=== PATIENT | female | born 1970 | race Caucasian/White ===

== ENCOUNTER 2018-07-07 00:27 | Emergency (ER) | payer MEDICAID ==
[2018-07-07] MEDS ORDERED: HYDROMORPHONE HCL 2 MG/ML VIAL IVP ONE ×2 (01:09→03:01)
[2018-07-07] MEDS ORDERED: ONDANSETRON HCL IV 4 MG/2 ML VIAL IVP ONE (01:10)
--- NOTE | 2018-07-07 01:13 | Emergency Department Record ---
History of Present Illness - General Chief complaint: Abscess Stated complaint: ABCESS Time Seen by Provider: 07/07/18 00:32 Source: Patient Mode of Arrival: Ambulatory Limitations: No limitations - History of Present Illness Initial comments: pt c/o abscess on her breast. she had an abscess in a different spot several years ago. this started a few days ago and is getting progressively worse. she has been running a fever. ir is very tender. she has not had a mammogram. her other breast has been checked for malignancy several times, she is currently being w/u for leukemia as it runs in the family. pt also states she has had discharge from the nipple MD complaint: Abscess/boil Onset/Timin -: Hour(s) Hx Tetanus Toxoid Vaccination: No Patient Tetanus UTD (within 5 yrs): No Location: Chest Severity: Moderate Severity scale (1-10): 10 Consistency: Constant Improves with: None Worsens with: Palpation Context: None Associated symptoms: Fever Treatments Prior to Arrival: Attempted to drain pus at home - Related Data Previous Rx's Medication Instructions Recorded Clindamycin HCl [Cleocin HCl] 150 mg PO Q8H #30 cap 07/07/18 Clindamycin HCl [Cleocin HCl] 300 mg PO Q8HR #30 capsule 07/07/18 Hydrocodone/Acetaminophen [[place] 1 each PO Q6HR #10 tablet 07/07/18 5-325 Tablet] Allergies Allergy/AdvReac Type Severity Reaction Status Date / Time ketorolac Allergy Intermediate HIVES Verified 05/08/16 01:34 Iodinated Contrast- Oral and Allergy HIVES Verified 05/08/16 01:34 IV Dye Travel Screening - Travel/Exposure Within Last 30 Days Have you traveled within the last 30 days?: No - Travel Symptoms Symptom Screening: Fever (Subjective) Review of Systems Reviewed: No additional complaints except as noted below Constitutional: Reports: As per HPI. Denies: Chills, Fever, Malaise, Night sweats, Weakness, Weight change Eyes: Reports: As per HPI. Denies: Eye discharge, Eye pain, Photophobia, Vision change ENT: Reports: As per HPI. Denies: Congestion, Dental pain, Ear pain, Epistaxis , Hearing loss, Throat pain Respiratory: Reports: As per HPI. Denies: Cough, Dyspnea, Hemoptysis, Stridor, Wheezes Cardiovascular: Reports: As per HPI. Denies: Arrhythmia, Chest pain, Dyspnea on exertion, Edema, Murmurs, Orthopnea, Palpitations, Paroxysmal nocturnal dyspnea, Rheumatic Fever, Syncope Endocrine: Reports: As per HPI. Denies: Fatigue, Heat or cold intolerance, Polydipsia, Polyuria Gastrointestinal: Reports: As per HPI. Denies: Abdominal pain, Constipation, Diarrhea, Hematemesis, Hematochezia, Melena, Nausea, Vomiting Genitourinary: Reports: As per HPI. Denies: Abnormal menses, Discharge, Dyspareunia, Dysuria, Frequency, Hematuria, Incontinence, Retention, Urgency Musculoskeletal: Reports: As per HPI. Denies: Arthralgia, Back pain, Gout, Joint swelling, Myalgia, Neck pain Skin: Reports: As per HPI, Rash. Denies: Bruising, Change in color, Change in hair/nails, Lesions, Pruritus Neurological: Reports: As per HPI. Denies: Abnormal gait, Confusion, Headache, Numbness, Paresthesias, Seizure, Tingling, Tremors, Vertigo, Weakness Psychiatric: Reports: As per HPI. Denies: Anxiety, Auditory hallucinations, Depression, Homicidal thoughts, Suicidal thoughts, Visual hallucinations Hematological/Lymphatic: Reports: As per HPI. Denies: Anemia, Blood Clots, Easy bleeding, Easy bruising, Swollen glands Past Medical History - SOCIAL HISTORY Smoking Status: Never smoker Alcohol Use: None Drug Use: None - RESPIRATORY Hx Respiratory Disorders: Yes Hx Asthma: Yes - CARDIOVASCULAR Hx Cardio Disorders: No - NEURO Hx Neuro Disorders: No - GI Hx GI Disorders: Yes Hx GI Bleed: Yes - Hx Genitourinary Disorders: Yes Comment:: Interstitial cystitis - ENDOCRINE Hx Endocrine Disorders: No - MUSCULOSKELETAL Hx Musculoskeletal Disorders: No - PSYCH Hx Psych Problems: Yes Hx Anxiety: Yes Hx Depression: Yes - HEMATOLOGY/ONCOLOGY Hx Hematology/Oncology Disorders: Yes Hx Cancer: Yes (Endometrial) Family Medical History Any Significant Family History?: Yes Hx Cancer: Grandparents Hx HTN: Father, Mother, Grandparents Physical Exam - General General Appearance: Alert, Oriented x3, Cooperative, Mild distress - Head Head exam: Normal inspection - Eye Eye exam: Normal appearance, PERRL, EOMI Pupils: Normal accommodation - ENT ENT exam: Normal exam, Mucous membranes moist, Normal external ear exam, Normal orophraynx Ear exam: Normal external inspection. negative: External canal tenderness Nasal Exam: Normal inspection. negative: Discharge, Sinus tenderness Mouth exam: Normal external inspection, Tongue normal Teeth exam: Normal inspection. negative: Dental caries Throat exam: Normal inspection. negative: Tonsillar erythema, Tonsillar exudate - Neck Neck exam: Normal inspection, Full ROM. negative: Tenderness - Respiratory Respiratory exam: Normal lung sounds bilaterally, Chest wall tenderness. negative: Respiratory distress - Cardiovascular Cardiovascular Exam: Normal rhythm, Normal heart sounds, Tachycardia - GI/Abdominal GI/Abdominal exam: Soft, Normal bowel sounds. negative: Tenderness - Rectal Rectal exam: Deferred - exam: Deferred - Extremities Extremities exam: Normal inspection, Full ROM, Normal capillary refill. negative: Tenderness - Back Back exam: Reports: Normal inspection, Full ROM. Denies: Muscle spasm, Rash noted, Tenderness - Neurological Neurological exam: Alert, CN II-XII intact, Normal gait, Oriented X3 - Psychiatric Psychiatric exam: Normal affect, Normal mood - Skin Skin exam: Dry, Erythema (lower part of left breast), Intact, Normal color, Warm Type of lesion: Abscess Distribution of rash: Chest Course Vital Signs 07/07/18 00:33 Temperature 98.1 F Pulse Rate [ 110 H Pulse Ox Probe] Respiratory 18 Rate Blood Pressure 175/93 [Left Arm] Pulse Ox 91 L Medical Decision Making - Lab Data Result diagrams: 07/07/18 01:15 07/07/18 01:15 Disposition Disposition: Discharge Clinical Impression: Breast infection in female Disposition: Home, Self-Care Condition: (1) Good Instructions: Abscess (ED) Additional Instructions: follow up with family doctor this week. use warm compresses. have mammogram. Prescriptions: Hydrocodone/Acetaminophen [[place] 5-325 Tablet] 1 each PO Q6HR #10 tablet Clindamycin HCl [Cleocin HCl] 300 mg PO Q8HR #30 capsule Clindamycin HCl [Cleocin HCl] 150 mg PO Q8H #30 cap Forms: Patient Portal Access Quality - Quality Measures Quality Measures: N/A - Blood Pressure Screening Does Patient Have Any of the Following: Active Dx of HTN Blood Pressure Classification: Hypertensive Reading Systolic Measurement: 175 Diastolic Measurement: 93 Screening for High Blood Pressure: Patient Exclusion, Hx of HTN [G9744]
[2018-07-07] MEDS ORDERED: CLINDAMYCIN 600MG/50ML PREMIX 600 MG/50 ML BAG IVPB ONE (01:22)
[2018-07-07 01:27] LABS: BASO % 0.6 % (0-6); EOS % 2.5 % (0-6); GRAN % 55.7 % (47-80); HEMATOCRIT 42.4 % (35.0-47.0); HEMOGLOBIN 13.2 gm/dl (11.6-16.0); LYMPH % 29.5 % (16-45); MEAN CELL VOLUME 88.5 fl (81-97); MEAN CORPUSCULAR HEMOGLOBIN 27.6 pg (27-33); MEAN CORPUSCULAR HGB CONC 31.1 g/dl (32-36); MEAN PLATELET VOLUME 9.6 fl (7.4-10.4); MONO % 11.7 % (0-9); PLATELET COUNT 319 K/uL (130-400); RED BLOOD COUNT 4.79 M/uL (3.80-5.40); WHITE BLOOD COUNT W/O DIFF 13.4 K/uL (4.2-12.2)
[2018-07-07 01:36] LABS: BLOOD UREA NITROGEN 18 mg/dL (6-20); EST GLOMERULAR FILTRATION RATE > 60 mL/min; TOTAL PROTEIN 7.7 g/dL (6.6-8.7)
[2018-07-07 01:38] LABS: GLUCOSE,RANDOM 93 mg/dL (74-109)
[2018-07-07 01:41] LABS: ALB/GLOB RATIO 1.1 (1.1-1.8); ALKALINE PHOSPHATASE 104 U/L (35-104); ALT/SGPT 23 U/L (<33); AST/SGOT 19 U/L (10.0-35.0)
[2018-07-07] MEDS ORDERED: FLUCONAZOLE 100 MG TABLET PO ONE (03:19)
--- NOTE | 2018-07-09 10:37 | CT SCAN REPORT ---
EXAM: CT OF THE CHEST WITHOUT CONTRAST HISTORY: ENLARGING LEFT BREAST MASS. TECHNIQUE: Routine noncontrast CT examination of the chest was obtained. Comparison: Two view chest radiographic examination dated 03/25/18. FINDINGS: The heart is normal in size. The thoracic aorta is normal in caliber as are the arch branch vessels. No mediastinal or hilar mass/ lymphadenopathy is seen. The central airways are clear. Minimal linear scarring versus atelectasis within the anterior lung bases. The lungs are otherwise clear. No pleural or pericardial effusion. There is skin thickening involving the inferior aspect of the left breast with somewhat nodular prominence measuring 15 x 24 mm. This may all be inflammatory though developing abscess would be difficult to entirely exclude. There is possible scar involving the superior right breast. The adrenal glands are incompletely imaged. To the extent visualized, they are normal in appearance. No lytic or blastic bone lesion is seen. IMPRESSION: 1. NO CT EVIDENCE OF AN ACUTE INTRATHORACIC PROCESS NOR INTRATHORACIC MASS. MINIMAL LINEAR SCARRING VERSUS ATELECTASIS IN THE ANTERIOR LUNG BASES. 2. SKIN THICKENING INVOLVING THE INFERIOR ASPECT OF THE LEFT BREAST WITH FOCAL CENTRAL NODULARITY. THIS MAY ALL RELATE TO CELLULITIS THOUGH DEVELOPING ABSCESS WOULD BE DIFFICULT TO ENTIRELY EXCLUDE. JOB NUMBER: [id number] [facility]
== END 2018-07-07 03:27 | disposition home or self-care (01) ==
LOC: ER 00:27
DX: N61.1 Abscess of the breast and nipple (principal)
CPT/HCPCS: 99284 ×2; 96376; 96365; 96375; 85025; 80053; 71250; J2405; J1170

== ENCOUNTER 2018-09-05 16:22 | Emergency (ER) | payer MEDICAID ==
--- NOTE | 2018-09-05 16:49 | Emergency Department Record ---
History of Present Illness - General Chief Complaint: Back Pain/Injury Stated Complaint: PEVIC AND BACK PAIN Time Seen by Provider: 09/05/18 16:35 Source: Patient Mode of Arrival: Ambulatory Limitations: No limitations - History of Present Illness Initial Comments: The patient is here due to pelvic burning and dysuria for one day with R flank pain. She has had no nausea, vomiting, fever, chills, or L sided AP. The patient does have a hx of kidney stones but this does not feel exactly like one. The patient did take her home Clio and Motrin prior to coming here. The patient has had a GIOVANNY in the past. The patient also has had a thin vaginal discharge and has had the burning feeling in the past with Bacterial vaginosis. MD Complaint: Other Onset/Timin -: Days(s) Severity scale (1-10): 8 - Related Data Previous Rx's Medication Instructions Recorded Metronidazole [Flagyl] 500 mg PO BID #14 tablet 09/05/18 Allergies Allergy/AdvReac Type Severity Reaction Status Date / Time ketorolac Allergy Intermediate HIVES Verified 09/05/18 16:34 Iodinated Contrast- Oral and Allergy HIVES Verified 09/05/18 16:34 IV Dye Travel Screening - Travel/Exposure Within Last 30 Days Have you traveled within the last 30 days?: No - Travel/Exposure Within Last Year Have you traveled outside the [place] in the last year?: No - Additonal Travel Details Have you been exposed to anyone with a communicable illness?: No - Travel Symptoms Symptom Screening: None Review of Systems Constitutional: Denies: Chills, Fever Eyes: Denies: Eye discharge ENT: Denies: Congestion Respiratory: Denies: Cough, Dyspnea Past Medical History - SOCIAL HISTORY Smoking Status: Never smoker Alcohol Use: None Drug Use: None - RESPIRATORY Hx Respiratory Disorders: Yes Hx Asthma: Yes - CARDIOVASCULAR Hx Cardio Disorders: Yes Hx Palpitations: Yes - NEURO Hx Neuro Disorders: No - GI Hx GI Disorders: Yes Hx Diverticulitis: Yes Hx GI Bleed: Yes Hx of Polyps: Yes - Hx Genitourinary Disorders: Yes Hx Kidney Stones: Yes Hx UTI: Yes Comment:: Interstitial cystitis - ENDOCRINE Hx Endocrine Disorders: No - MUSCULOSKELETAL Hx Musculoskeletal Disorders: No - PSYCH Hx Psych Problems: Yes Hx Anxiety: Yes Hx Depression: Yes - HEMATOLOGY/ONCOLOGY Hx Hematology/Oncology Disorders: Yes Hx Cancer: Yes (Endometrial) Family Medical History Any Significant Family History?: No Hx Cancer: Grandparents Hx HTN: Father, Mother, Grandparents Physical Exam - General General Appearance: Alert, Oriented x3, Cooperative, No acute distress - Head Head exam: Atraumatic, Normocephalic, Normal inspection - Eye Eye exam: Normal appearance, PERRL - Neck Neck exam: Normal inspection, Full ROM. negative: Tenderness - Respiratory Respiratory exam: Normal lung sounds bilaterally. negative: Respiratory distress - Cardiovascular Cardiovascular Exam: Regular rate, Normal rhythm, Normal heart sounds - GI/Abdominal GI/Abdominal exam: Soft (morbidly obese.), Tenderness (There is mild diffuse lower abdominal tenderness with no guarding or rebound.). negative: Rebound, Rigid - exam: Normal external exam, Vaginal discharge (thin and clear.), Other ( Placing the speculum exactly reproduces the patient's pain and pelvic burning feeling.). negative: Abnormal external exam (There is no erythema or external pelvic lesions visualized.), Normal speculum exam, Vaginal bleeding, Vaginal erythema (There were no vaginal lesions. ) - Extremities Extremities exam: Normal inspection, Full ROM, Normal capillary refill. negative: Tenderness - Neurological Neurological exam: Alert. negative: Motor sensory deficit Course Vital Signs 09/05/18 16:25 Temperature 98.9 F Pulse Rate 119 H Respiratory 18 Rate Blood Pressure 138/87 Pulse Ox 95 - Reevaluation(s) Reevaluation #1: The patient is resting comfortably and appears to be in no distress. I did discuss the issues with the pelvic exam and that the vaginal area clearly seems to be the issue. We will treat the a patient for BV and also have her F/U with her Urologist for her recheck of her IC. 09/05/18 18:13 Medical Decision Making - Data Complexity MDM Data: Labs Ordered and/or Reviewed, X-Ray Ordered and/or Reviewed - Lab Data Result diagrams: 09/05/18 16:50 09/05/18 16:50 - Radiology Data Radiology results: Report reviewed (CT: Neg for any acute changes.) Disposition Disposition: Discharge Clinical Impression: Pelvic pain Disposition: Home, Self-Care Condition: (2) Stable Instructions: Pelvic Pain in Women (ED) Additional Instructions: Please continue your home pain medicines and take the Flagyl as directed. Please see your family doctor for recheck next week and also see Dr. Mckenna for recheck. Return to the ER for any worsening symptoms. Prescriptions: Metronidazole [Flagyl] 500 mg PO BID #14 tablet Forms: Patient Portal Access Time of Disposition: 18:15 Quality - Quality Measures Quality Measures: N/A - Blood Pressure Screening View Details: Yes Does Patient Have Any of the Following: No Blood Pressure Classification: Normal BP Reading Systolic Measurement: 116 Diastolic Measurement: 76 Screening for High Blood Pressure: < Normal BP, F/U Not Required > [G8783]
[2018-09-05 16:58] LABS: BASO % 0.6 % (0-6); EOS % 2.3 % (0-6); GRAN % 54.2 % (47-80); HEMATOCRIT 47.3 % (35.0-47.0); HEMOGLOBIN 14.8 gm/dl (11.6-16.0); LYMPH % 31.7 % (16-45); MEAN CELL VOLUME 86.6 fl (81-97); MEAN CORPUSCULAR HEMOGLOBIN 27.1 pg (27-33); MEAN CORPUSCULAR HGB CONC 31.3 g/dl (32-36); MONO % 11.2 % (0-9); PLATELET COUNT 364 K/uL (130-400); RED BLOOD COUNT 5.46 M/uL (3.80-5.40); RED CELL DISTRIBUTION WIDTH 15.7 % (11.5-14.5); WHITE BLOOD COUNT W/O DIFF 11.9 K/uL (4.2-12.2)
[2018-09-05 17:00] LABS: URINE APPEARANCE CLEAR; URINE BILIRUBIN NEGATIVE (NEGATIVE); URINE BLOOD NEGATIVE (NEGATIVE); URINE COLOR YELLOW; URINE GLUCOSE (UA) NEGATIVE (NEGATIVE); URINE KETONE NEGATIVE (NEGATIVE); URINE LEUKOCYTE ESTERASE NEGATIVE (NEGATIVE); URINE NITRITE NEGATIVE (NEGATIVE); URINE PROTEIN NEGATIVE (NEGATIVE); URINE UROBILINOGEN 0.2 E.U./dL (0.20 - 1.00)
[2018-09-05 17:09] LABS: BILIRUBIN,TOTAL 0.3 mg/dL (0.2-1.0); CREATININE 1.1 mg/dL (0.5-0.9)
[2018-09-05 17:10] LABS: TOTAL PROTEIN 8.2 g/dL (6.6-8.7)
[2018-09-05 17:15] LABS: ALB/GLOB RATIO 1.1 (1.1-1.8); ALBUMIN 4.2 g/dL (4.0-5.0)
--- NOTE | 2018-09-07 10:12 | CT SCAN REPORT ---
EXAM: CT OF THE ABDOMEN AND PELVIS WITHOUT CONTRAST HISTORY: LOWER ABDOMINAL PAIN. TECHNIQUE: Sequential axial images were obtained from the diaphragms through the ischiorectal fossa without intravenous or oral contrast administration. FINDINGS: The visualized lung bases appear normal. The gallbladder has been surgically removed. The nonopacified liver, pancreas and spleen appear normal. The adrenal glands and kidneys appear normal. The small bowel appears normal. The colon appears normal. No evidence of diverticulitis. The urinary bladder appears grossly unremarkable. Stimulator device in the lower lumbar spine. Degenerative change of the lower lumbar spine. IMPRESSION: NO ACUTE ABDOMINAL OR PELVIC DISEASE PROCESS. JOB NUMBER: [id number] [facility]
== END 2018-09-05 18:30 | disposition home or self-care (01) ==
LOC: ER 16:22
DX: R10.2 Pelvic and perineal pain (principal); R30.0 Dysuria; Z87.442 Personal history of urinary calculi
CPT/HCPCS: 99284 ×2; 85025; 80053; 81003; 74176; Q0111; 87210

== ENCOUNTER 2019-08-17 21:30 | Emergency (ER) | payer MEDICAID ==
--- NOTE | 2019-08-17 21:41 | Emergency Department Record ---
History of Present Illness - General Stated Complaint: BROKEN TOE?/ UTI Time Seen by Provider: 08/17/19 21:38 Source: Patient Mode of Arrival: Ambulatory Limitations: No limitations - History of Present Illness Initial Comments: 48 yo female presents to ED for evaluation of pain and bruising to the great toe following injury 3 days ago. Patient reports pain with weight bearing, came to the ED as she believes she may have broken her toe. Patient also reports urinary frequency and burning, denies flank pain, fevers, chills, or vomiting symptoms. Patient reports that she was treated for a UTI 12 days ago in [place], however her symptoms are still present. Patient denies abdominal pain symptoms on examination. MD Complaint: Other (Toe injury) Type of Injury: Blunt Place: Home Severity: Moderate Improves With: Immobilization Worsens With: Weight bearing Context: Direct blow - Related Data Home Medications Medication Instructions Recorded Confirmed Last Taken Apixaban [Eliquis] 1 tab PO BID 08/17/19 08/17/19 Unknown Levofloxacin 1 tab PO DAILY 08/17/19 08/17/19 Unknown Lisinopril/Hydrochlorothiazide 1 tab PO DAILY 08/17/19 08/17/19 08/17/19 [Lisinopril-Hctz 10-12.5 mg Tab] Previous Rx's Medication Instructions Recorded Cephalexin [Keflex] 500 mg PO TID #21 cap 08/17/19 Fluconazole [Diflucan] 150 mg PO DAILY #3 tablet 08/17/19 Allergies Allergy/AdvReac Type Severity Reaction Status Date / Time ketorolac Allergy Intermediate HIVES Verified 08/17/19 21:53 Iodinated Contrast Media Allergy HIVES Verified 08/17/19 21:53 [Iodinated Contrast- Oral and IV Dye] sulfamethoxazole Allergy DIFFICULTY Verified 08/17/19 21:53 [From Bactrim] BREATHING trimethoprim [From Bactrim] Allergy DIFFICULTY Verified 08/17/19 21:53 BREATHING Review of Systems Constitutional: Denies: Chills, Fever, Malaise, Night sweats Eyes: Denies: Eye discharge, Eye pain ENT: Denies: Congestion, Ear pain, Epistaxis Respiratory: Denies: Cough, Dyspnea Cardiovascular: Denies: Chest pain, Dyspnea on exertion Endocrine: Denies: Fatigue, Heat or cold intolerance Gastrointestinal: Denies: Abdominal pain, Nausea, Vomiting Genitourinary: Reports: Dysuria, Frequency. Denies: Incontinence, Retention Musculoskeletal: Reports: Arthralgia. Denies: Back pain Skin: Denies: Bruising, Change in color Neurological: Denies: Abnormal gait, Confusion, Headache, Seizure Psychiatric: Denies: Anxiety Hematological/Lymphatic: Denies: Anemia, Blood Clots Past Medical History - SOCIAL HISTORY Smoking Status: Never smoker Drug Use: None - RESPIRATORY Hx Respiratory Disorders: Yes Hx Asthma: Yes - CARDIOVASCULAR Hx Cardio Disorders: Yes Hx Palpitations: Yes - NEURO Hx Neuro Disorders: No - GI Hx GI Disorders: Yes Hx Diverticulitis: Yes Hx GI Bleed: Yes Hx of Polyps: Yes - Hx Genitourinary Disorders: Yes Hx Kidney Stones: Yes Hx UTI: Yes Comment:: Interstitial cystitis - ENDOCRINE Hx Endocrine Disorders: No - MUSCULOSKELETAL Hx Musculoskeletal Disorders: No - PSYCH Hx Psych Problems: Yes Hx Anxiety: Yes Hx Depression: Yes - HEMATOLOGY/ONCOLOGY Hx Hematology/Oncology Disorders: Yes Hx Cancer: Yes (Endometrial) Family Medical History Hx Cancer: Grandparents Hx HTN: Father, Mother, Grandparents Physical Exam - General General Appearance: Alert, Oriented x3, Cooperative, No acute distress Limitations: No limitations - Head Head exam: Atraumatic, Normocephalic, Normal inspection Head exam detail: negative: Abrasion, Contusion, Lopez's sign, General tenderness, Hematoma, Laceration - Eye Eye exam: Normal appearance. negative: Conjunctival injection, Periorbital swelling, Periorbital tenderness, Scleral icterus - ENT Ear exam: negative: Auricular hematoma, Auricular trauma Nasal Exam: negative: Active bleeding, Discharge, Dried blood, Foreign body Mouth exam: negative: Drooling, Laceration, Muffled voice, Tongue elevation - Neck Neck exam: Normal inspection. negative: Meningismus, Tenderness - Respiratory Respiratory exam: Normal lung sounds bilaterally. negative: Rales, Respiratory distress, Rhonchi, Stridor - Cardiovascular Cardiovascular Exam: Normal rhythm, Normal heart sounds, Tachycardia - GI/Abdominal GI/Abdominal exam: Soft. negative: Rebound, Rigid, Tenderness - Rectal Rectal exam: Deferred - exam: Deferred - Back Back exam: Denies: CVA tenderness (R), CVA tenderness (L) - Neurological Neurological exam: Alert, Normal gait, Oriented X3 - Psychiatric Psychiatric exam: Normal affect, Normal mood - Skin Skin exam: Normal color. negative: Abrasion Type of lesion: negative: abrasion Course Vital Signs 08/17/19 21:36 Temperature 98.8 F Pulse Rate [ 125 H Pulse Ox Probe] Respiratory 20 Rate Blood Pressure 177/90 [Left Arm] Pulse Ox 94 L - Reevaluation(s) Reevaluation #1: 08/17/19 22:48 Left toes: No acute fracture identified Laboratory studies were reviewed and appear grossly unremarkable for an acute process except for the following: WBC 13.1 GFR 47 UA: RBCs: 3-6 WBCs: 0-2 Epithelial Cells: 3-6 Bacteria: 1+ Rocephin ordered to infuse Patient was updated on all results, will discharge home on Keflex as directed for treatment of UTI. Patient appears stable for discharge at this time. Medical Decision Making - Lab Data Result diagrams: 08/17/19 22:15 08/17/19 22:15 Disposition Disposition: Discharge Clinical Impression: UTI (urinary tract infection) Qualifiers: Urinary tract infection type: acute cystitis Hematuria presence: with hematuria Qualified Code(s): N30.01 - Acute cystitis with hematuria Toe contusion Qualifiers: Encounter type: initial encounter Toe: lesser toe Damage to nail status: without damage Laterality: left Qualified Code(s): S90.122A - Contusion of left lesser toe(s) without damage to nail, initial encounter Disposition: Home, Self-Care Condition: (2) Stable Instructions: Contusion in Adults (ED) Additional Instructions: Return to ED if your symptoms worsen or if you have any concerns. Keflex as directed. Follow-up with your family doctor in 3-5 days as directed. Prescriptions: Fluconazole [Diflucan] 150 mg PO DAILY #3 tablet Cephalexin [Keflex] 500 mg PO TID #21 cap Time of Disposition: 22:53 Quality - Quality Measures Quality Measures: N/A - Blood Pressure Screening Does Patient Have Any of the Following: Active Dx of HTN Blood Pressure Classification: Hypertensive Reading Systolic Measurement: 177 Diastolic Measurement: 90 Screening for High Blood Pressure: Patient Exclusion, Hx of HTN [G9744]
[2019-08-17] MEDS ORDERED: ONDANSETRON HCL IV 4 MG/2 ML VIAL IVP ONE (21:46)
[2019-08-17 21:49] LABS: URINE APPEARANCE CLEAR; URINE BILIRUBIN NEGATIVE (NEGATIVE); URINE BLOOD NEGATIVE (NEGATIVE); URINE COLOR YELLOW; URINE GLUCOSE (UA) NEGATIVE (NEGATIVE); URINE KETONE NEGATIVE (NEGATIVE); URINE LEUKOCYTE ESTERASE NEGATIVE (NEGATIVE); URINE NITRITE POSITIVE (NEGATIVE); URINE PROTEIN NEGATIVE (NEGATIVE)
[2019-08-17 21:57] LABS: URINE BACTERIA 1+; URINE WBC 0 - 2 (0-2/hpf)
[2019-08-17] MEDS ORDERED: 0.9 % SODIUM CHLORIDE 1000ML 1,000 ML IV SCH (22:00)
[2019-08-17 22:26] LABS: ABSOLUTE NEUTROPHIL COUNT 7.82; BASO % 0.5 % (0-6); EOS % 2.3 % (0-6); HEMOGLOBIN 13.3 gm/dl (11.6-16.0); LYMPH % 28.6 % (16-45); MEAN CELL VOLUME 90.3 fl (81-97); MEAN CORPUSCULAR HEMOGLOBIN 27.9 pg (27-33); MEAN CORPUSCULAR HGB CONC 30.9 g/dl (32-36); MEAN PLATELET VOLUME 9.9 fl (7.4-10.4); MONO % 9.6 % (0-9); PLATELET COUNT 295 K/uL (130-400); RED BLOOD COUNT 4.76 M/uL (3.80-5.40); RED CELL DISTRIBUTION WIDTH 14.9 % (11.5-14.5); WHITE BLOOD COUNT W/O DIFF 13.3 K/uL (4.2-12.2)
[2019-08-17 22:38] LABS: BILIRUBIN,TOTAL < 0.20 mg/dL (0.2-1.0); BLOOD UREA NITROGEN 19 mg/dL (6-20); CREATININE 1.3 mg/dL (0.5-0.9); EST GLOMERULAR FILTRATION RATE 47 mL/min; TOTAL PROTEIN 7.7 g/dL (6.6-8.7)
[2019-08-17 22:40] LABS: GLUCOSE,RANDOM 110 mg/dL (74-109)
[2019-08-17] MEDS ORDERED: CEFTRIAXONE 1GM/50ML BAG 1 GM/50 ML BAG IVPB ONE (22:42)
[2019-08-17 22:43] LABS: ALB/GLOB RATIO 1.1 (1.1-1.8); ALBUMIN 4.1 g/dL (4.0-5.0); ALKALINE PHOSPHATASE 97 U/L (35-104); ALT/SGPT 45 U/L (<33); AST/SGOT 36 U/L (10.0-35.0)
[2019-08-17] MEDS ORDERED: ACETAMINOPHEN 1,000 MG/100 ML BTL IVPB ONE (22:46)
--- NOTE | 2019-08-17 22:47 | RADIOLOGY REPORT ---
EXAMINATION: Left Toes, Minimum Two Views EXAM DATE: 08/17/2019 10:42 PM TECHNIQUE: AP, lateral, and oblique INDICATION: injury 2nd toe COMPARISON: None ENCOUNTER: Initial FINDINGS: There is no bone or joint abnormality. IMPRESSION: Unremarkable left toes. Dictated by: Ronald Garner MD on 08/17/2019 10:45 PM. .
== END 2019-08-18 00:02 | disposition home or self-care (01) ==
LOC: ER 21:30
DX: S90.122A Contusion of left lesser toe(s) without damage to nail, initial encounter (principal); N30.01 Acute cystitis with hematuria; W22.8XXA Striking against or struck by other objects, initial encounter; Y92.009 Unspecified place in unspecified non-institutional (private) residence as the place of occurrence of the external cause; I10 Essential (primary) hypertension
CPT/HCPCS: 99284 ×2; 96374; 96375; 85025; 80053; 81001; 73660; J2405; J0696; J7030